=== PATIENT | female | born 1950 | race Caucasian/White ===

== ENCOUNTER 2018-12-26 10:12 | Inpatient (IN) ==
[2018-12-26 10:59] LABS: BASO# 0.06 X1000 (0.0-0.2); BASO% 0.9 % (0.0-0.8); EOS# 0.28 X1000 (0.0-0.7); EOS% 4.1 % (0.0-10.0); HEMATOCRIT 42.3 % (37.0-47.0); HEMOGLOBIN 14.5 g/dL (12.0-16.0); LYMPH# 1.75 X1000 (1.2-3.4); LYMPH% 25.5 % (20.5-51.1); MCH 31.3 PG (27-31); MCHC 34.3 g/dL (33-37); MCV 91.2 FL (81-99); MONO% 7.3 % (1.7-9.3); MPV 10.9 FL (7.4-10.4); NEUT# 4.27 X1000 (1.4-6.5); NEUT% 62.2 % (42.2-75.2); PLT 193 X1000 (130-400); RBC 4.64 XMIL (4.2-5.4); RDW 12.9 % (11.5-14.5); WBC 6.86 X1000 (4.8-10.8)
[2018-12-26 11:07] LABS: INR 0.97; PROTIME 13.7 Seconds (11.0-16.0); PTT 26.1 Seconds (22.3-41.8)
[2018-12-26 11:11] LABS: URINE SOURCE CLEAN CATCH
[2018-12-26 11:12] LABS: BILIRUBIN URINE NEGATIVE (NEGATIVE); BLOOD URINE NEGATIVE (NEGATIVE); COLOR STRAW; GLUCOSE URINE NEGATIVE (NEGATIVE); KETONE URINE NEGATIVE (NEGATIVE); LEUKOCYTES URINE NEGATIVE (NEGATIVE); NITRITE URINE NEGATIVE (NEGATIVE); PROTEIN URINE NEGATIVE (NEGATIVE); SP GRAVITY URINE 1.003; TURBIDITY URINE CLEAR (CLEAR); UR EPITHELIAL CELLS <10 /HPF (<10); URINE BACTERIA NEGATIVE /HPF; URINE RBC <10 /HPF (<10); URINE WBC <10 /HPF (<10); UROBILINOGEN URINE NORMAL (NORMAL)
[2018-12-26 11:30] LABS: AGAP 10; ALB/GLOB RATIO 2.2; ALBUMIN 4.3 g/dL (3.5-5.0); ALKALINE PHOSPHATASE 69 U/L (32-104); BUN 14 mg/dL (8-22); CALCIUM 9.3 mg/dL (8.8-10.2); CHLORIDE 105 mmol/L (98-107); CK PROFILE 128 U/L (24-173); COSMO 284; CREATININE 0.9 mg/dL (0.5-0.9); ESTIMATED GFR > 60; GLUCOSE 110 mg/dL (70-104); GOT 18 U/L (10-30); GPT 12 U/L (10-36); POTASSIUM 4.1 mmol/L (3.5-5.1); SODIUM 142 mmol/L (136-145); TCO2 27 mmol/L (25-35); TOTAL BILIRUBIN 0.84 mg/dL (0.20-1.00); TOTAL PROTEIN 6.3 g/dL (6.3-8.3)
--- NOTE | 2018-12-26 11:47 | Diag Imaging Result Doc PS360 ---
EXAM: CT HEAD W/O CONTRAST 12/26/2018 HISTORY: LLE numbness TECHNIQUE: This exam was performed using automated exposure control, adjustment of mA or kV according to patient size, and/or use of iterative reconstruction technique. COMMENT: There are no previous studies. There is no evidence of mass effect, bleed, or abnormal extra-axial fluid collection. The calvarium is intact. The left sphenoid sinus is opacified otherwise the paranasal sinuses are clear where there are visible. There is persistence the metopic suture. IMPRESSION: Left sphenoid sinusitis. No evidence of acute intracranial disease. Electronically signed by Max Bustos 12/26/2018 11:44 AM
--- NOTE | 2018-12-26 12:03 | PROVIDER DOCUMENTATION ---
This chart was entered by Cira Ward Scribe, acting as scribe for Magdy Holguin MD. HPI-Cardiac General - General Chief Complaint: General Adult Stated Complaint: LT ARM TINGLING, HEART RACING Time Seen by Provider: 12/26/18 10:25 Source: patient Allergies/Adverse Reactions: Patient Allergies Allergy/AdvReac Type Severity Reaction Status Date / Time No Known Allergies Allergy Verified 12/26/18 10:27 - History of Present Illness-Cardiac Nature of Presenting Problem: Patient is a 68 year old female who presents to the ED after having an episode of palpitations, chest heaviness, neck pain and tingling to left arm and left leg. Patient states episode started while upstairs in the hospital then resolved when arriving to the ED. Patient denies fever, cough, nausea, vomiting and diarrhea. Patient states having similar episode 2 days ago. Location: reports: central Quality of Pain: reports: other (heaviness) Severity in ED: mild Onset/Duration: other (COMMUNICATION SPECIALIST) Timing: gone now Palpitation Quality: irregular Recent use of:: reports: caffeine Similar Symptoms Previously?: Yes Recently Seen Here or By Another Healthcare Provider: No Review of Systems - Adult - REVIEW OF SYSTEMS - ADULT Constitutional: reports: no symptoms reported. denies: chills, fever, fatique Eyes: reports: no symptoms reported Ears, Nose, Mouth & Throat: reports: no symptoms reported Cardiovascular: reports: no symptoms reported. denies: chest pain, irregular heart rate, palpitations Respiratory: reports: no symptoms reported Gastrointestinal: reports: no symptoms reported. denies: diarrhea, nausea, vomiting Genitourinary: reports: no symptoms reported Musculoskeletal: reports: no symptoms reported Integumentary: reports: no symptoms reported Neurological: reports: no symptoms reported. denies: dizziness/vertigo, headache/migraines, paresthesia, slurred speech, syncope Psychiatric: reports: no symptoms reported Endocrine: reports: no symptoms reported Hematologic/Lymphatic: reports: no symptoms reported Allergic/Immunologic: reports: no symptoms reported All Other Systems: Reviewed and Negative Past History - Adult - PAST MEDICAL HISTORY-ADULT Review of Records: reports: Old Records Reviewed, Nursing Assessment Review, Medications Reviewed, Social history reviewed & non-contributory. Major Childhood Illnesses: reports: denies history Cardiovascular: reports: denies history Respiratory: reports: denies history Gastrointestinal: reports: denies history Obstetrical/Gynecological: reports: denies history Genitourinary: reports: denies history Musculoskeletal: reports: denies history Neurological: reports: denies history Psychiatric: reports: denies history Endocrine/Immune: reports: denies history Other Conditions: reports: denies history - PRIOR SURGERIES/PROCEDURES Surgical/Procedure History: reports: hysterectomy - IMMUNIZATION STATUS Childhood Immunizations: See Nurse Assessment Flu Vaccine: See Nurse Assessment - FAMILY HISTORY Family History: reviewed, not pertinent - SOCIAL HISTORY Smoking: cigarettes (former) Substance Use: denies Physical Exam-General - PHYSICAL EXAM-ADULT Initial Vital Signs Reviewed: Yes - CONSTITUTIONAL General Appearance: appears well, alert, no apparent distress. negative: l ethargic, slow to respond - NECK Neck: non-tender, normal inspection. negative: C-spine tenderness, limited range of motion - RESPIRATORY Respiratory: chest non-tender, lungs clear, normal breath sounds. negative: crackles, rhonchi, wheezing - CARDIOVASCULAR Cardiovascular: normal peripheral pulses, regular rate, rhythm. negative: tachycardia, systolic murmur - GASTROINTESTINAL (ABDOMEN) Abdominal Exam: normal bowel sounds, non tender, soft. negative: guarding, rebound - MUSCULOSKELETAL Extremity: normal range of motion, non-tender, normal inspection. negative: deformity, erythema - SKIN Integumentary: normal color, normal turgor, warm/dry. negative: ecchymosis, erythema - NEUROLOGIC Neurologic: grossly normal, no motor/sensory deficits. negative: aphasia, facial droop - PSYCHIATRIC Psych/Mental Status: normal mood/affect, oriented x 3. negative: anxious - HEART Score HEART Score: History: Slightly Suspicious HEART Score: ECG: Normal HEART Score: Age: > or = 65 Years HEART Score: Risk Factors for Atherosclerotic Disease: 1 or 2 Risk Factors HEART Score: Troponin: < or = Normal Limit Total HEART Score:: 3 Progress - PLAN OF CARE/RESULTS Progress/Plan/Lab Results: Vital Signs - 8 hr 12/26/18 10:16 Temperature 98.1 F Pulse Rate 99 H Respiratory Rate 18 Blood Pressure 157/87 O2 Sat by Pulse Oximetry 99 Laboratory Results - last 24 hr 12/26/18 12/26/18 12/26/18 10:48 10:48 10:48 WBC 6.86 RBC 4.64 Hgb 14.5 Hct 42.3 MCV 91.2 MCH 31.3 H MCHC 34.3 RDW Std Deviation 12.9 Plt Count 193 MPV 10.9 H Immature Gran % (Auto) 0.0 Neut % (Auto) 62.2 Lymph % (Auto) 25.5 [place] % (Auto) 7.3 Eos % (Auto) 4.1 Baso % (Auto) 0.9 H Immature Gran # (Auto) 0.00 Neut # (Auto) 4.27 Lymph # (Auto) 1.75 [place] # (Auto) 0.50 Eos # (Auto) 0.28 Baso # (Auto) 0.06 PT 13.7 INR 0.97 PTT (Actin FS) 26.1 Sodium 142 Potassium 4.1 Chloride 105 Carbon Dioxide 27 Anion Gap 10 BUN 14 Creatinine 0.9 Estimated GFR/1.73 m2 > 60 BUN/Creatinine Ratio 16 Glucose 110 H Calculated Osmolality 284 Calcium 9.3 Total Bilirubin 0.84 AST 18 ALT 12 Alkaline Phosphatase 69 Creatine Kinase 128 Troponin T Total Protein 6.3 Albumin 4.3 Globulin 2.0 Albumin/Globulin Ratio 2.2 Urine Source Urine Color Urine Turbidity Urine pH Ur Specific [place] Urine Protein Ur Glucose (Stick) Ur Ketones (Stick) Urine Blood Urine Nitrite Urine Bilirubin Urobilinogen Dipstick Urine Leukocytes Urine WBC (Auto) Urine RBC (Auto) U Epithel Cells (Auto) Urine Bacteria (Auto) 12/26/18 12/26/18 10:48 11:03 WBC RBC Hgb Hct MCV MCH MCHC RDW Std Deviation Plt Count MPV Immature Gran % (Auto) Neut % (Auto) Lymph % (Auto) [place] % (Auto) Eos % (Auto) Baso % (Auto) Immature Gran # (Auto) Neut # (Auto) Lymph # (Auto) [place] # (Auto) Eos # (Auto) Baso # (Auto) PT INR PTT (Actin FS) Sodium Potassium Chloride Carbon Dioxide Anion Gap BUN Creatinine Estimated GFR/1.73 m2 BUN/Creatinine Ratio Glucose Calculated Osmolality Calcium Total Bilirubin AST ALT Alkaline Phosphatase Creatine Kinase Troponin T < 0.010 Total Protein Albumin Globulin Albumin/Globulin Ratio Urine Source CLEAN CATCH Urine Color STRAW Urine Turbidity CLEAR Urine pH 7.0 Ur Specific [place] 1.003 Urine Protein NEGATIVE Ur Glucose (Stick) NEGATIVE Ur Ketones (Stick) NEGATIVE Urine Blood NEGATIVE Urine Nitrite NEGATIVE Urine Bilirubin NEGATIVE Urobilinogen Dipstick NORMAL Urine Leukocytes NEGATIVE Urine WBC (Auto) <10 Urine RBC (Auto) <10 U Epithel Cells (Auto) <10 Urine Bacteria (Auto) NEGATIVE Orders Category Date Time Status Admit - [facility] Routine AdmDCTranf 12/26/18 12:18 Active CHEST-2 VIEWS [RAD] Stat Exams 12/26/18 10:[address] HEAD W/O CONTRAST [CT] Stat Exams 12/26/18 10:31 Completed CBC WITH ELECTRONIC DIFF [HEME] Stat Lab 12/26/18 10:48 Completed CK PROFILE [SP CHEM] Stat Lab 12/26/18 10:48 Completed COMPREHENSIVE METABOLIC PANEL [CHEM] Stat Lab 12/26/18 10:48 Completed PROTIME WITH INR [COAG] Stat Lab 12/26/18 10:48 Completed PTT [COAG] Stat Lab 12/26/18 10:48 Completed TROPONIN T Stat Lab 12/26/18 10:48 Completed URINALYSIS W/POSS RFLX CULT [URINALYSIS] Stat Lab 12/26/18 11:03 Completed Transfer/Admit Order [TRANSFER] Routine Transfer 12/26/18 12:19 Ordered Result Diagrams: 12/26/18 10:48 12/26/18 10:48 - EKG 1 Time of EKG reading by physician:: 10:23 EKG Read and Signed by:: Magdy Holguin EKG Interpretation (*Must complete 3 of following elements*): Abnormal Rate: 67 Rhythm: normal sinus rhythm [place]: normal [place] Interval: normal Comments: possible left atrial enlargement - XRAY 1 XRAY Study: Chest Impression: See EMR Report (CHEST-2 VIEWS - 12/26/2018 INDICATION: chest discomfort COMPARISON: None FINDINGS: The lungs are normally expanded and clear. Heart size and mediastinal contours are normal. No pneumothorax or pleural effusion. IMPRESSION: Negative exam. Electronically signed by Last Farr 12/26/2018 12:35 PM 12/26/18 1235 Interpreting Physician: Last Farr MD Dictated Date/Time: 12/26/18 1235 cc: Magdy Holguin MD; Zohaib Britt MD) - CT/MRI 1 CT Study: Head Impression: See EMR Report ( EXAM: CT HEAD W/O CONTRAST 12/26/2018 HISTORY: LLE numbness TECHNIQUE: This exam was performed using automated exposure control, adjustment of mA or kV according to patient size, and/or use of iterative reconstruction technique. COMMENT: There are no previous studies. There is no evidence of mass effect, bleed, or abnormal extra-axial fluid collection. The calvarium is intact. The left sphenoid sinus is opacified otherwise the paranasal sinuses are clear where there are visible. There is persistence the metopic suture. IMPRESSION: Left sphenoid sinusitis. No evidence of acute intracranial disease. Electronically signed by Max Bustos 12/26/2018 11:44 AM 12/26/18 1144 Interpreting Physician: Max Bustos MD Dictated Date/Time: 12/26/18 1143 cc: Magdy Holguin MD; Zohaib Britt MD) - CONSULTS/PCP/HOSPITALIST Notification #1 *Consult/PCP/Hospitalist*: Dr. Britt Time Discussed: 12:17 Reason/Comments: Dr. Holguin consulted with Dr. Britt about patient. Consult Disposition: Admit Departure - Departure Date of Disposition Decision: 12/26/18 Time of Disposition Decision: 12:18 DIAGNOSIS: Chest pain Disposition: ADMITTED INPATIENT 09 Certified Medical Emergency: Emergent Condition: Serious Referrals and Follow-Ups: Zohaib Britt MD [Primary Care Provider] - - Critical Care Note This patient required my direct & personal management of CC.: No Attestation - Physician/ MODESTA Attestation The physician spent face to face time with patient:: Yes Advanced Practice Provider documentation review:: Supervising physician onsite and consulted in the evaluation and care of this patient. The physician did have a face to face encounter with the patient. This chart was documented by the indicated scribe, (Cira Ward Scribe) and accurately reflects the services I performed and decisions made by me, Magdy Holguin MD, as attested by the provider's signature.
--- NOTE | 2018-12-26 12:37 | Diag Imaging Result Doc PS360 ---
CHEST-2 VIEWS - 12/26/2018 INDICATION: chest discomfort COMPARISON: None FINDINGS: The lungs are normally expanded and clear. Heart size and mediastinal contours are normal. No pneumothorax or pleural effusion. IMPRESSION: Negative exam. Electronically signed by Last Farr 12/26/2018 12:35 PM
--- NOTE | 2018-12-26 14:27 | EKG Report ---
Test Performed on : 12/26/2018 10:23:27 AM Blood Pressure : / mmHG Vent. Rate : 067 BPM Atrial Rate : 067 BPM P-R Int : 158 ms QRS Dur : 086 ms QT Int : 400 ms P-R-T Axes : 063 -04 032 degrees QTc Int : 422 ms Normal sinus rhythm. Possible Left atrial enlargement Borderline ECG No previous ECGs available Unconfirmed Result
[2018-12-26] MEDS ORDERED: PNEUMOVAX 23 IM ONE (16:00)
[2018-12-26] MEDS: INDERAL PO SCH (21:36)
--- NOTE | 2018-12-26 22:41 | HISTORY AND PHYSICAL ---
CHIEF COMPLAINT: Palpitations, left arm tingling and numbness. HISTORY OF PRESENT ILLNESS: She is a 68-year-old white female, came to the emergency room with episodes of palpitations, heaviness, neck pain, tingling in the left arm, left leg. The patient states the pain started while taking upstairs in the hospital. She he has been visiting her brother who had a AAA surgery. She had a 1st episodes on Sunday, it started again today. She has history of mitral valve prolapse on beta blockers. Initial workup in the ER was essentially unremarkable. Basically, admitted to the hospital for observation. Rule out GA, rule out ischemic heart disease. 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 PAST SURGICAL HISTORY: Complete hysterectomy, benign lumps in the breast, stripping of the varicose veins. MEDICATIONS: Colace, Mobic, Propanol. ALLERGIES: Not known. SOCIAL HISTORY: Single. She is a mental health worker. No smoking, no alcohol. FAMILY HISTORY: Father in accident at age 63. Mother is still alive with bypass surgery at 90. HEALTH MAINTENANCE: Flu vaccine was declined. Pap smear 08/2018. Mammography 07/2018, DEXA scan 2016, colonoscopy [address] Castelan. REVIEW OF SYSTEMS: HEENT: No headache. No vision problem. No earache. No sore throat. Neck: No goiter. No lymphadenopathy. No bruit. Cardiovascular: Chest pain as described radiating to left arm. No shortness of breath, palpitations. Gastrointestinal: No nausea, vomiting, abdominal pain. Extremities: No swelling of legs. No history of joint pains. Neurologic: No focal symptoms or weakness. PHYSICAL EXAMINATION: VITAL SIGNS: Temperature is 98.9 degrees, pulse 97, blood pressure is 148/89. HEENT: Atraumatic, normocephalic. Pupils equal, reactive to light. TMs are normal. Nose and throat within normal limits. NECK: Supple. No lymphadenopathy. JVD is not elevated. CHEST: Bilateral air entry. HEART: Sounds are regular. No clicks, no murmur. ABDOMEN: Belly is soft, nontender. Good bowel sounds. No masses palpable. EXTREMITIES: No peripheral edema, cyanosis. NEUROLOGIC: No obvious neurological deficits. INVESTIGATIONS: 1. CBC: White cell count 6.8, hematocrit 42, platelets 193,000. PT 13, INR 0.97. SMA-7 showed normal glucose 110. LFTs were normal. Cardiac enzymes were normal. Urinalysis is clear. 2. CT head, left sphenoid sinusitis. No evidence of acute intracranial disease. 3. Chest x-ray negative. 4. EKG: Normal sinus, nothing acute. ASSESSMENT AND PLAN: 1. A 68-year-old white female admitted to the hospital with chest pain, atypical and initial workup is negative. Scheduled for echo and stress test in the morning. 2. Left sphenoid sinusitis, asymptomatic. 3. Cervical spine spondylosis, as described. 4. Screening for abdominal aortic aneurysm in light of family history. 5. Repeat the carotid ultrasound and reconcile home medications. Discussed the plan of care with the family members at bedside, and will follow up. cc: Erick Britt MD
[2018-12-27 04:06] LABS: URINE SOURCE CLEAN CATCH
[2018-12-27 04:10] LABS: BILIRUBIN URINE NEGATIVE (NEGATIVE); BLOOD URINE NEGATIVE (NEGATIVE); COLOR YELLOW; GLUCOSE URINE NEGATIVE (NEGATIVE); KETONE URINE 10 mg/dL (NEGATIVE); LEUKOCYTES URINE SMALL (NEGATIVE); NITRITE URINE NEGATIVE (NEGATIVE); PROTEIN URINE NEGATIVE (NEGATIVE); SP GRAVITY URINE 1.016; TURBIDITY URINE CLEAR (CLEAR); UROBILINOGEN URINE NORMAL (NORMAL)
[2018-12-27 04:11] LABS: UR EPITHELIAL CELLS <10 /HPF (<10); URINE BACTERIA NEGATIVE /HPF; URINE RBC <10 /HPF (<10)
[2018-12-27] MEDS ORDERED: TYLENOL PO PRN (05:31)
[2018-12-27 06:25] LABS: INR 0.99; PROTIME 13.9 Seconds (11.0-16.0)
[2018-12-27 06:28] LABS: D-DIMER 0.39 ug/mLFEU (0.0-0.52)
--- NOTE | 2018-12-27 07:44 | Diag Imaging Result Doc PS360 ---
EXAM: US AORTA 12/27/2018 HISTORY: aaa screening TECHNIQUE: Ultrasound of the abdominal aorta COMMENT: The abdominal aorta is not distended. The maximum dimension in the AP diameter in the upper abdominal aorta is less than 2.2 cm. IMPRESSION: No evidence of abdominal aortic aneurysm. Electronically signed by Max Bustos 12/27/2018 7:42 AM
[2018-12-27] MEDS ORDERED: ASPIRIN PO SCH (09:00)
[2018-12-27] MEDS ORDERED: ROCEPHIN 1 GM in NS 50 ML IV SCH (09:00)
[2018-12-27] MEDS ORDERED: OSCAL 500 + D PO SCH (09:00)
[2018-12-27] MEDS ORDERED: OCUVITE LUTEIN & ZEAXANTHIN PO SCH (09:00)
[2018-12-27] MEDS ORDERED: VITAMIN C PO SCH (09:00)
[2018-12-27] MEDS ORDERED: LEXISCAN ONE (11:59)
--- NOTE | 2018-12-27 13:56 | Diag Imaging Result Document ---
PROCEDURE NAME: MYOCARDIAL PERF SCAN, STR/REST - 12/27/2018 PROCEDURE: Lexiscan Cardiolite stress test. SUMMARY: 1. Lexiscan was infused per standard protocol. There was no chest pain. Stress electrocardiogram was negative for ischemia. Baseline electrocardiogram revealed normal sinus rhythm, poor R wave progression. 2. 10.8 mCi of Cardiolite was injected for the rest phase, 32 mCi of Cardiolite was injected for the stress phase. Images revealed significant diaphragmatic and chest wall attenuation. In addition, there is GI interference. Normal left ventricular cavity size. There is better tracer uptake on stress compared to rest. There is moderate size moderate grade fixed defect in the left ventricular apex as well as left ventricular inferior wall. This could represent attenuation defect or scar. Left ventricular ejection fraction by gated SPECT was 84%. Normal wall motion. CONCLUSIONS: 1. No chest pain. 2. Negative Lexiscan stress electrocardiogram. 3. Myocardial perfusion images reveal no evidence of ischemia. 4. There is moderate grade moderate size fixed defect in the left ventricular apex and the left ventricular inferior wall. This could represent attenuation defect and GI interference as well. Cannot rule out scar. Left ventricular ejection fraction by gated SPECT was 84%. cc: MD Erick Kolb MD
[2018-12-27] MEDS: INDERAL PO SCH (14:24)
[2018-12-27 15:19] VITALS: BP 103/45
--- NOTE | 2018-12-27 20:26 | ECHO REPORT ---
ORDER DATE: 12/26/2018 ECHOCARDIOGRAPHIC MEASUREMENTS: 1. Interventricular septum 0.8. 2. Left ventricular posterior wall 0.8. 3. Diastolic diameter 3.8. 4. Left atrium 3.2. 5. Aorta 3.2. SUMMARY: 1. Aortic valve leaflets were trileaflet. 2. Pulmonic valve was normal. There is mild pulmonary regurgitation. 3. Tricuspid valve was normal. 4. Mitral valve leaflets were normal. 5. Peak velocity across the aortic valve less than 2 m/sec. There is no aortic stenosis or regurgitation. 6. There is mild tricuspid regurgitation. Peak velocity across the tricuspid valve was 2.8 m/sec. 7. Pulmonary artery systolic pressure of 42 mmHg. 8. The right ventricle appears to be mildly dilated. There is no obvious intracardiac mass or thrombus seen. 9. Normal right ventricular cavity size and function. 10. Peak velocity across the aortic valve less than 2 m/sec by Doppler studies. 11. There is no aortic stenosis or regurgitation. Technically suboptimal study. Optison was used to assess endocardial border. Normal left ventricular cavity size. Estimated ejection fraction of 60%. cc: MD Erick Kolb MD
--- NOTE | 2018-12-29 11:13 | Carotid Study ---
DATE: 12/26/2018 PROCEDURE: Carotid duplex imaging. REFERRING PHYSICIAN: Dr. Britt INTERPRETING PHYSICIAN: Dr. Arnold TECH: Natalie Moreno Darwin INDICATIONS: Syncope. OBSERVED DATA RIGHT LEFT Brachial Blood Pressure Carotid Pulse Bruits: Carotid/Sub DIAGRAM OF ULTRASOUND IMAGING R L RIGHT INT EXT INT EXT LEFT Angel (cm/s) Angel (cm/s) Subclavian 85/0 Subclavian 76/0 CCA Proximal 74/14 CCA Proximal 84/17 CCA Distal 72/19 CCA Distal 70/12 Bulb 71/19 Bulb 55/11 ICA Proximal 55/12 ICA Proximal 55/12 ICA Mid 60/18 ICA Mid 60/18 ICA Distal 103/35 ICA Distal 72/18 ECA 73/5 ECA 63/6 Vertebral 39/8 Vertebral 54/12 ICA/CCA Ratio 1.38 ICA/CCA Ratio 0.86 % Stenosis 0 to 39 % Stenosis 0 to 39 PHYSICIAN INTERPRETATION: Mild atherosclerotic disease of the distal common and internal carotid artery bilaterally without evidence of a hemodynamically significant lesion in either carotid system. cc: MD Erick Chen MD
--- NOTE | 2018-12-31 15:12 | DISCHARGE SUMMARY ---
ADMISSION DATE: 12/26/2018 DISCHARGE DATE: 12/27/2018 DISCHARGING DIAGNOSIS: Atypical chest pain. Stress test was negative. SECONDARY DIAGNOSIS: 1. Mitral valve prolapse with thickening of the leaflets. 2. Fibromyalgia. 3. C-spine spondylosis. BRIEF HISTORY: Please see the H and P that was done on 12/26/2018. In brief she is a 68-year-old white female came to the ER with chest pain going to the left arm, tingling and numbness. Recently, her brother had a massive AAA repair. The patient was admitted to the hospital for observation. HOSPITAL COURSE: Followup EKG nondiagnostic for ischemia. Cardiac enzymes were negative. Further workup was unremarkable. LABS: CBC: White cell count 6.8, hematocrit 42, platelets 193,000, PT/INR is normal. SMA 7 is normal. Glucose 110. Cardiac enzymes were negative. Urinalysis is clear. Urine cultures, blood cultures were negative. Myocardial perfusion scan, no chest pain. Negative Lexiscan stress EKG. No evidence of reversible ischemia. Some fixed defects in the inferior wall. EF is 84%. Ultrasound of the aorta. No evidence of abdominal aortic aneurysm measured at 2.2 cm. Carotid Dopplers, no hemodynamics stenosis in either internal carotid system. CT head, left sphenoid sinusitis. No evidence of acute intracranial disease. Chest x-ray was negative. All the findings were reassuring and patient was discharged home with the following instructions: 1. Mobic 7.5 p.o. b.i.d. 2. Propanol 40 mg p.o. b.i.d. 3. Calcium with vitamin D 1 tablet daily. 4. Vitamin C 1000 mg daily. 5. Follow up in my office in 10 days. cc: Erick Britt MD
== END 2018-12-27 20:11 | disposition home or self-care (01) | DRG 313 ==
LOC: ED 10:12 → 4N 10:13
PROVIDERS: ADMIT Internal Medicine; ATTEND Internal Medicine
CPT/HCPCS: 70450; 71020; 71046; 76775; 78452; 80053; 81001; 82550; 84484; 85025; 85379; 85610; 85730; 87040; 87088; 93005; 93017; 93306; 93880; 94761; 99285; A9270; A9500; C8929; J2785; Q9957